=== PATIENT | male | born 1980 | race Caucasian/White ===

== ENCOUNTER 2021-07-25 09:49 | Emergency (ER) | payer OTHER ==
[~2021-07-25] VITALS: Ht 193 cm; Wt 100.0 kg
[2021-07-25 09:54] VITALS: BP 109/68
--- NOTE | 2021-07-25 10:41 | PHYS DOC ---
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 Patient states that he was working in the [employer] when he noticed moisture on one wall. He had his face near the event, which seem to be the source of moisture. He found out that this liquid was urine from an inmate who urinates into event frequently. The urine came in contact with the left side of his face. He immediately cleansed his skin. He did not flush his eye. He denies any medical complaints at this time, including pain, vision changes, discharge from the eye. (HOLLY MAK) Review of Systems: Review of Systems: ROS negative except as mentioned in HPI. (HOLLY MAK) Allergies: Allergies: Allergies Coded Allergies Type Severity Reaction Last Updated Verified No Known Drug Allergies 04/15/14 No (HOLLY MAK) Physical Exam: PE: Constitutional: Well developed, well nourished, no acute distress, non-toxic appearance. HENT: Normocephalic, atraumatic, bilateral external ears normal, oropharynx moist, no oral exudates, nose normal. Eyes: PERRLA, EOMI, conjunctiva normal, no discharge. Cardiovascular: Heart rate regular rhythm, no murmur. Lungs & Thorax: Bilateral breath sounds clear to auscultation. Skin: Warm, dry, no erythema, no rash. (HOLLY MAK) Current Patient Data: Vital Signs: Vital Signs Date Time Temp Pulse Resp B/P (MAP) Pulse Ox O2 Delivery O2 Flow Rate FiO2 07/25/21 09:54 97.9 59 16 109/68 (82) 98 Room Air (HOLLY MAK) Heart Score: C/O Chest Pain: No (HOLLY MAK) Course & Med Decision Making: Course & Med Decision Making Pertinent Labs and Imaging studies reviewed. (See chart for details) Patient has no physical complaints at this time. Body fluid exposure protocol per correctional facility follow-up, blood will be drawn to test for HIV and hepatitis panel. Patient will be discharged home with body fluid exposure instruction. Patient understands and is agreeable to discharge plan. (HOLLY MAK) Dragon Disclaimer: Dragon Disclaimer: This electronic medical record was generated, in whole or in part, using a voice recognition dictation system. (HOLLY MAK) Departure Departure: Impression: Primary Impression: Employee exposure to body fluids Disposition: HOME / SELF CARE / HOMELESS Condition: STABLE Referrals: MATT KNIGHT (PCP) Patient Instructions: Body Fluid Exposure Attending Signature Attending Signature I have reviewed the PA/DENTAL RECEPTIONIST's note and plan of care. I was available for consultation as needed during the patient's visit in the emergency department. I agree with the clinical impression, plan, and disposition. (KASSANDRA HANCOCK DO) HOLLY MAK Jul 25, 2021 10:41 KASSANDRA HANCOCK DO Jul 25, 2021 15:06
== END 2021-07-25 10:52 | disposition home or self-care (01) ==
LOC: ER 09:49
DX: Z77.21 Contact with and (suspected) exposure to potentially hazardous body fluids (principal); F17.200 Nicotine dependence, unspecified, uncomplicated
CPT/HCPCS: 86703; 86705; 86709; 86803; 87340; 99283